=== PATIENT | female | born 1970 | race Caucasian/White ===

== ENCOUNTER → 2019-04-20 07:55 | Outpatient (BNVA) | payer OTHER, SELFPAY | PROVIDERS: Family Provider Nurse Practitioner Family; PCP Nurse Practitioner Family; Visit Provider Specialist | DX: M50.00 Cervical disc disorder with myelopathy, unspecified cervical region (principal); M79.7 Fibromyalgia; G43.711 Chronic migraine without aura, intractable, with status migrainosus; F41.8 Other specified anxiety disorders; M54.81 Occipital neuralgia; R76.8 Other specified abnormal immunological findings in serum | CPT/HCPCS: 64405; 64450; 99214; J1030; J3490 ==

== ENCOUNTER → 2019-12-21 16:53 | Outpatient (BNVA) | payer OTHER, SELFPAY | PROVIDERS: Family Provider Nurse Practitioner Family; PCP Nurse Practitioner Family; Visit Provider Nurse Practitioner Family | DX: Z11.59 Encounter for screening for other viral diseases (principal); Z20.828 Contact with and (suspected) exposure to other viral communicable diseases; J06.9 Acute upper respiratory infection, unspecified | CPT/HCPCS: 87635 ==

== ENCOUNTER → 2020-10-15 10:18 | Outpatient (BNVA) | payer BC, SELFPAY | PROVIDERS: Family Provider Nurse Practitioner Family; PCP Nurse Practitioner Family; Visit Provider Nurse Practitioner Family | DX: Z20.822 Contact with and (suspected) exposure to COVID-19 (principal) | CPT/HCPCS: 87635 ==

== ENCOUNTER → 2020-12-27 10:40 | Outpatient (BNVA) | payer BC, SELFPAY | PROVIDERS: Family Provider Nurse Practitioner Family; PCP Nurse Practitioner Family; Visit Provider Anesthesiology Pain Medicine | DX: G89.29 Other chronic pain (principal); M51.16 Intervertebral disc disorders with radiculopathy, lumbar region; M47.816 Spondylosis without myelopathy or radiculopathy, lumbar region; M43.12 Spondylolisthesis, cervical region | CPT/HCPCS: 99204 ==

== ENCOUNTER 2021-01-28 08:28 | Outpatient (CLI) | payer BC, SELFPAY ==
--- NOTE | 2021-01-28 08:45 | MR_ITS ---
WS: [id number] MRI CERVICAL SPINE NONCONTRAST TECHNIQUE: Sagittal T1, T2 and STIR imaging. Axial T2, gradient, and fiesta imaging. CLINICAL INFORMATION: M54.12 - Radiculopathy, cervical region COMPARISON: FINDINGS: Straightening of the normal cervical lordosis. Mild disc bulging C4-C6 with disc osteophytic ridging. Cord signal is normal. No high-grade central canal stenosis. Alignment is unchanged since 2019. C2-C3: Normal C3-C4: Disc osteophyte complex with endplate ridging. Mild bilateral foraminal narrowing. Mild facet arthropathy. Spinal canal is patent. C4-C5: Disc osteophyte complex with endplate ridging. Shallow central disc bulging. Mild right forami nal narrowing. Mild facet arthropathy. C5-C6: Disc osteophyte complex with endplate ridging. Mild facet arthropathy. Mild right greater than left foraminal narrowing. C6-C7: Disc osteophyte complex with endplate ridging. Spinal canal is patent. Mild facet arthropathy. Osteophytic ridging results in mild right greater than left bony foraminal narrowing. C7-T1: No significant disc bulging. Spinal canal and foramen are patent. Visualized brain stem structures: Normal. Prevertebral soft tissues: Normal. Overall no significant changes since 2019. MR/MR cervical spin wo con* [id number] IMPRESSION: 1. Straightening of the normal cervical lordosis. 2. Mild disc bulging with osteophytic ridging C4-C6. Slight contact of the cer vical cord at C4-5 unchanged from previous. No significant central canal stenos is. 3. Mild bilateral bony foraminal narrowing worse at right C3-4, right C5-6, an d right C6-7 unchanged from previous. 4. Mild facet arthropathy C4-C6.
== END 2021-01-28 08:29 | disposition home or self-care (01) ==
LOC: RADSHAW 08:32
PROVIDERS: PCP Nurse Practitioner Family; Visit Provider Anesthesiology Pain Medicine
DX: M54.12 Radiculopathy, cervical region (principal); M47.812 Spondylosis without myelopathy or radiculopathy, cervical region; M50.221 Other cervical disc displacement at C4-C5 level
CPT/HCPCS: 72141

== ENCOUNTER → 2021-01-30 09:13 | Outpatient (BNVA) | payer BC, SELFPAY | PROVIDERS: PCP Nurse Practitioner Family; Visit Provider Anesthesiology Pain Medicine | DX: G89.29 Other chronic pain (principal); M54.12 Radiculopathy, cervical region; M54.50 Low back pain, unspecified; M79.602 Pain in left arm; M79.605 Pain in left leg; M79.604 Pain in right leg | CPT/HCPCS: 99214 ==

== ENCOUNTER → 2022-04-01 10:00 | Outpatient (BNVA) | payer BC, MEDICAID, SELFPAY | PROVIDERS: PCP Nurse Practitioner Family; Visit Provider Nurse Practitioner Women's Health | DX: Z12.39 Encounter for other screening for malignant neoplasm of breast (principal); Z01.419 Encounter for gynecological examination (general) (routine) without abnormal findings; N63.31 Unspecified lump in axillary tail of the right breast; N92.1 Excessive and frequent menstruation with irregular cycle; J06.9 Acute upper respiratory infection, unspecified | CPT/HCPCS: 87624 ==

== ENCOUNTER → 2022-04-11 08:40 | Outpatient (BNVA) | payer BC, MEDICAID, SELFPAY | PROVIDERS: PCP Nurse Practitioner Family; Visit Provider Nurse Practitioner Women's Health | DX: N92.6 Irregular menstruation, unspecified (principal) | CPT/HCPCS: 76830 ==

== ENCOUNTER 2022-04-24 14:05 | Outpatient (CLI) | payer BC, MEDICAID, SELFPAY ==
--- NOTE | 2022-04-24 14:17 | MM_ITS ---
WS: [id number] BILATERAL 3D TOMOSYNTHESIS DIGITAL DIAGNOSTIC MAMMOGRAPHY WITH CAD CLINICAL INFORMATION: N63.31 - Unspecified lump in axillary tail of the right b... HISTORY: RIGHT breast lump COMPARISON: 2019 TECHNIQUE: Bilateral CC, MLO, and ML views. FINDINGS: Fatty replaced breasts bilaterally. A few incidental punctate calcifications. No parenchymal normalities in the area of palpable concern RIGHT breast near the axilla. Ultrasound is described below. LEFT breast is unchanged and unremarkable. ULTRASOUND BREAST RIGHT TECHNIQUE: Ultrasound right breast focused area of concern. CLINICAL INFORMATION: N63.31 - Unspecified lump in axillary tail of the right b... FINDINGS: Ultrasound RIGHT breast axillary tail in the area of patient concern. Normal underlying parenchymal t issue. No cystic or solid lesions. No lymphadenopathy or suspicious lymph nodes in this area. Finding s are benign. MM/[place] [id number] IMPRESSION: BI-RADS 2 BENIGN FOLLOW UP: Recommend return to annual screening mammography.
== END 2022-04-24 14:06 | disposition home or self-care (01) ==
PROVIDERS: PCP Nurse Practitioner Family; Visit Provider Nurse Practitioner Women's Health
DX: N63.31 Unspecified lump in axillary tail of the right breast (principal)
CPT/HCPCS: 76642; 77062; G0279

== ENCOUNTER 2022-06-10 14:40 | Observation (INO) | payer BC, MEDICAID, SELFPAY ==
[2022-06-05 09:44] VITALS: BMI 42.5
[2022-06-05 10:10] LABS: Basophils # 0.1 10^3/uL (0.0-0.1); Basophils % 0.8 %; Eosinophils # 0.4 10^3/uL (0.0-0.8); Eosinophils % 5.2 %; Hemoglobin 10.3 g/dL (11.5-15.3); Lymphocytes # 1.8 10^3/uL (0.8-4.8); Lymphocytes % 25.2 %; Mean Corpuscular HGB Conc 29.4 g/dL (30.0-36.0); Mean Corpuscular Hemoglobin 20.8 pg (28.0-34.0); Mean Corpuscular Volume 70.7 fl (81-99); Mean Platelet Volume 9.8 fL (7.4-10.4); Monocytes # 0.6 10^3/uL (0.2-0.9); Monocytes % 8.1 %; Neutrophils # 4.38 10^3/uL (1.8-7.7); Neutrophils % 60.4 %; Nucleated Red Blood Cells % 0 %; Platelet Count 353 10^3/cmm (130-400); Red Blood Count 4.95 10^6/uL (4.1-5.3); Red Cell Distribution Width 15.3 % (12.1-15.1); White Blood Count 7.3 10^3/uL (4.0-10.0)
--- NOTE | 2022-06-05 10:13 | P.ANESASSM_ITS ---
Pre-Anesthetic Assessment Height/Weight: Height 1.6 m Weight 108.862 kg Operation Date: 06/10/22 09:20 Proposed Procedures p Laparoscopic assisted vaginal hysterectomy, bilateral salpingo-oophorectomy 74023,N93.9, D25.9(Not Applicable) - Anay Paul MD Familial anesthetic complications: 1.) PONV 2.) Generalized erythema and desquamation after 3 prior surgeries ( I look like a boiled lobster and I molt ) - states lasts 7-10 days, did no visit geriatric care manager, but did not result in any further negative sequelae. Does have history of eczema. ? Sandro-Jaren/TENS. Informed if happens again post surgery to visit geriatric care manager Social No alcohol and No tobacco Exam alert, oriented x 3, clear to auscultation bilaterally and regular rate & rhythm Airway Mallampati: Class III Dentition: full Pulmonary Asthma CV/HEM Hypertension Metabolic Diabetes Mellitus (Pre-DM), Hyperlipidemia, Morbid Obesity and Thyroid Disease [facility] [place] Fibromyalgia Neuropsych Transient Ischemic Attack (Most recently in 2019) Anesthetic Plan ASA status: 3 Anesthesia: General Risk of > 500 ml blood loss (7ml/kg in children): No Medications/Allergies Home Medications Medication Instructions Recorded Confirmed Last Taken Type hydroxyzine HCl 50 mg tablet 50 mg PO ONCE 04/20/19 06/05/22 06/04/22 History diphenhydramine HCl 25 mg capsule 25 mg PO TID PRN Sleep 04/01/22 06/05/22 06/04/22 History (Benadryl) ibuprofen 800 mg tablet 800 mg PO Q8H 04/01/22 06/05/22 06/02/22 History levothyroxine 75 mcg capsule 75 mcg PO DAILY 04/01/22 06/05/22 06/05/22 History metoprolol succinate 50 mg capsule 50 mg PO DAILY 04/01/22 06/05/22 06/05/22 History sprinkle, ext. release 24 hr rimegepant 75 mg disintegrating mg PO 04/01/22 06/05/22 Unknown History tablet (Nurtec ODT) tizanidine 4 mg capsule 4 mg PO BID PRN Muscle Spasm 04/01/22 06/05/22 06/05/22 History clobetasol 0.05 % topical ointment 1 applic topical BID 2 weeks #60 04/08/22 06/05/22 06/04/22 Rx grams hydrocortisone 2.5 % topical cream 1 applic topical BID PRN skin 04/08/22 06/05/22 06/04/22 Rx irritation #20 grams ketoconazole 2 % topical cream 1 applic topical BID #30 grams 04/08/22 06/05/22 06/04/22 Rx mupirocin 2 % topical ointment 1 applic topical BID #15 grams 04/08/22 06/05/22 06/03/22 Rx pimecrolimus 1 % topical cream 1 applic topical BID #30 grams 04/08/22 06/05/22 06/04/22 Rx (Elidel) triamcinolone acetonide 0.1 % 1 applic topical BID #80 grams 04/08/22 06/05/22 06/04/22 Rx topical ointment alprazolam 0.5 mg tablet 0.5 mg PO DAILY 04/17/22 06/05/22 06/05/22 History quetiapine 25 mg tablet 25 mg PO BID 06/04/22 06/05/22 06/05/22 History amitriptyline 25 mg tablet 25 mg PO DAILY 06/05/22 06/05/22 06/04/22 History scopolamine base 1 mg over 3 days 1 patch transdermal Q3D PRN nausea 06/05/22 06/05/22 Unknown Rx transdermal patch and vomiting #4 ea venlafaxine 150 mg tablet,extended 150 mg PO DAILY 06/05/22 06/05/22 Unknown History release 24 hr Allergies Allergy/AdvReac Type Severity Reaction Status Date / Time shellfish derived Allergy Intermediate hives Verified 06/05/22 08:01 Cephalosporins Allergy Unknown Verified 06/05/22 08:01 egg Allergy Unknown Verified 06/05/22 08:01 erythromycin base Allergy GI upset Verified 06/05/22 08:01 Penicillins AdvReac hives Verified 06/05/22 08:01 [facility] Anesthesia Medical History Diabetes Encounter for screening laboratory testing for COVID-19 virus Hx-TIA (transient ischemic attack) Hypertension Viral URI with cough Family History Grandmother Heart disease Hypertension Grandfather Heart disease Hypertension Mother Hypertension Other Diabetes Stroke Denies family history of Colon cancer Ovarian cancer Hypercholesteremia Breast cancer Uterine cancer Thyroid disease Social History Alcohol intake: never Data Anesthesia 06/05/22 09:58 06/05/22 09:58 Short CBC 06/05/22 Range/Units 09:58 WBC 7.3 (4.0-10.0) 10^3/uL Hgb 10.3 L (11.5-15.3) g/dL Hct 35.0 L (37.0-47.0) % MCV 70.7 L (81-99) fl Plt Count 353 (130-400) 10^3/cmm Neut % (Auto) 60.4 % Neut # (Auto) 4.38 (1.8-7.7) 10^3/uL Cardiac Studies: No Data to Display
[2022-06-05 10:27] LABS: Blood Urea Nitrogen 12 mg/dL (6-20); Calcium 8.4 mg/dL (8.5-10.5); Carbon Dioxide 26 mmol/L (22-29); Chloride 103 mmol/L (98-107); Glomerular Filtration Rate 105.8 mL/min (90-130); Glucose 129 mg/dL (65-115); Osmolality Calculated 285 mOsm/kg (285-295); Sodium 137 mmol/L (136-145)
[2022-06-10] VITALS (22 sets, daily range): BP systolic 97–145; BP diastolic 50–83; PULSE 74–96; RESP 15–19; TEMP 36.1–37.4; O2SAT 93–98
[2022-06-10 07:53] LABS: OR HCG Qualitative Urine Negative (Negative)
[2022-06-10] MEDS: gabapentin 300 mg Capsule PO (08:19)
[2022-06-10] MEDS: phenazopyridine 100 mg Tablet 200 MG PO ×3 (08:19→21:17)
[2022-06-10] MEDS: sodium chloride 0.9% 1,000 ML 30 ML IV (08:19)
[2022-06-10] MEDS: CELEcoxib 200 mg Capsule 400 MG PO (08:19)
[2022-06-10] MEDS: acetaminophen 1,000 MG/100 ML PIGGYBACK 400 MG IV (08:20)
--- NOTE | 2022-06-10 08:21 | W.PM.OPSUD ---
Surgery/Procedure H&P Update DATE OF PROCEDURE: June 10, 2022 DATE H&P PERFORMED: 06/05/22 H&P UPDATE INFORMATION: I have reviewed H&P completed within last 30 days, I have examined patient prior to procedure and No changes to prior documentation PREOP DIAGNOSIS: aub PLANNED PROCEDURE: Operation Date: 06/10/22 08:45 Proposed Procedures p Laparoscopic assisted vaginal hysterectomy, bilateral salpingo-oophorectomy 57450,N93.9, D25.9(Not Applicable) - Anay Paul MD Related Problem List Diagnoses (1) Uterine fibroid: (2) Irregular intermenstrual bleeding:
[2022-06-10 08:26] LABS: Glucose Point of Care 117 mg/dL (70-110)
[2022-06-10] MEDS: ondansetron 2 mg/ML SDV 2 mL 4 MG IVP ×3 (08:27→14:48)
[2022-06-10] MEDS: diphenhydrAMINE 50 mg/mL SDV 1mL 25 MG IVP (08:27)
[2022-06-10] MEDS: vancomycin 1,500 MG/300 ML PIGGYBACK 200 MG IV (08:34)
[2022-06-10] MEDS: vasopressin 20 unit/mL INJ INJECTION (09:55)
--- NOTE | 2022-06-10 10:07 | P.ANESUD_ITS ---
Pre-Anesthetic Update Pre-Anesthetic Assessment: Date of Surgery/Procedure: 06/10/22 Preop Kourtney gnosis: aub Proposed Procedure: Operation Date: 06/10/22 08:45 Proposed Procedures p Laparoscopic assisted vaginal hysterectomy, bilateral salpingo-oophorectomy 46901,N93.9, D25.9(Not Applicable) - Anay Paul MD Any changes to Pre-Anesthetic Assessment?: No Last Intake: Intake Last Liquid Date 06/09/22 Last Liquid Time 23:45 Last Solid Date 06/09/22 Last Solid Time 23:30 Labs Last 48hrs: Blood Bank 06/10/22 08:14 Blood Type O Positive Rho(D) Type Positive Antibody Screen Negative Vitals: Temperature 99.3 F 06/10/22 07:45 Temperature Source Temporal Artery S can 06/10/22 07:45 Pulse Rate 74 06/10/22 07:45 Pulse Rhythm 06/10/22 07:55 Pulse Strength 3+ Normal 06/10/22 07:55 Respiratory Rate 16 06/10/22 07:45 Blood Pressure 138/80 06/10/22 07:45 Blood Pressure Maggie n 99 06/10/22 07:45 Pulse Oximetry 97 06/10/22 07:45 Oxygen Delivery Me thod 06/10/22 07:55 Exam: Pre-Anes Outpt Exam: alert, oriented x 3, clear to auscultation bilaterally and regular rate & rhythm Cardiac Studies: No Data to Display
--- NOTE | 2022-06-10 13:37 | P.OP_ITS ---
Operative Report Date of procedure: June 10, 2022 Pre-op diagnosis: Preop Diagnosis aub Post-op diagnosis: same Post-op diagnosis: uterine fibroids Post-op findings: enlarged uterus with fibroids, dense adhesions in the pelvis. Left ovarian cyst. Normal appearing right ovary. Procedure done: LAVH, BSO, cystoscopy Specimens removed/disposition: UTERUS, tubes and ovaries to pathology Surgeon: Anay Paul Anesthesia: General Estimated blood loss (mL): 500 IV fluids (mL): 2,400 Urine output (mL): 250 Complications: none Findings: very enlarged uterus, normal appearing tubes and ovaries Condition: stable Disposition: PACU Procedure: The patient was taken to the operating room where general anesthesia was administered and found to be adequate. She was prepped and draped in the normal sterile fashion in the dorsal lithotomy position in [facility]. A Nassar catheter was placed. A weighted speculum was placed into the vagina and the anterior lip of the cervix was grasped with a single tooth tenaculum. The Zumi uterine manipulator was placed. The weighted speculum was removed. The gloves were changed and attention was turned to the abdomen. A 5 mm supraumbilical incision was made. Using a 5 mm port with the camera, the port was placed into the abdomen. The abdomen was insufflated. Two low, lateral 5 mm ports were placed on the left and right under direct visualization from the camera. The right tube was grasped and elevated. Using the laparoscopic cautery, the infundibulopelvic ligament was cauterized. Then, following the curve of the tube, the broad ligament was cauterized up to the cornua. This was performed bilaterally. The uteroovarian ligaments as well as the round ligaments were ligated. Attention was then turned to the vaginal portion of the procedure. The weighted speculum was placed into the vagina. The zumi manipulator was removed. The single tooth tenaculum was removed and replaced with the jodie's tenaculum. 10 mL of dilute Pitressin was injected at the vesicovaginal junction. A circumferential incision was made at the vesicovaginal junction and the vaginal mucosa reflected cephalad. The posterior peritoneum was entered sharply with the Metzenbaum scissors and the long weighted speculum replaced. Using the Nicole clamps the uterosacral ligaments were clamped cut and suture- ligated. The anterior peritoneum was entered sharply with the metzenbaum scissors. Then sequentially the uterine arteries and cardinal ligaments were clamped cut and suture-ligated. The uterus was so large that I had a difficult time removing it. I cut portions out and attempted to shell out some fibroids. I grasped an anterior fibroid and eventually delivered the uterus. The remaining segement of the utero-ovarian ligaments were clamped cut and suture- ligated bilaterally and the specimen was removed. There was good hemostasis with only mild bleeding from the cuff. There was some fat in the posterior of the cuff. I had Dr. Rogers come and take a look to make sure that this was not a complication. He determined that it was normal and only mariana rectal fat. The peritoneum was closed with a pursestring using 2-0 Vicryl. The vaginal c uff was closed with 0 Vicryl in a running locked pattern incorporating the uterosacral ligaments into the lateral aspects of the vaginal cuff. The Nassar catheter was removed and the cystoscope advanced into the bladder. The patient was given pyridium and bilateral spill was noted. There were no injuries or deficits noted in the bladder. The cystoscope was removed and the Nassar was replaced. Vaginal packing was placed for good hemostasis. The gloves and gowns were changed and attention was turned to the abdomen. The ports were closed with 2-0 monocryl with skin glue. The patient tolerated the procedure well. Sponge lap and needle counts were correct x3. She was taken to the recovery room in stable condition.
[2022-06-10 14:01] LABS: Glucose Point of Care 151 mg/dL (70-110)
[2022-06-10] MEDS: metoclopramide 5 mg/mL SDV 2 mL 10 MG (14:58)
[2022-06-10] MEDS: dextrose 5%-lactated ringers 1,000 ML 125 ML IV ×2 (15:36→23:30)
[2022-06-10] MEDS: clindamycin 900 MG/50 ML PREMIX 100 MG IV (15:36)
--- NOTE | 2022-06-10 16:23 | ANE.PACU2 ---
Inpatient post-anesthesia follow up: Airway intact: Yes Vital signs: Temperature 98.2 F Pulse Rate 78 Respiratory Rate 17 Blood Pressure 142/74 Pulse Oximetry 97 Oxygen Delivery Me thod Room Air Oxygen Flow Rate 3 Fraction of Inspir ed Oxygen Hydration adequate: Yes Nausea and vomiting: No Pain level: 3 Mental status: Baseline
[2022-06-10] MEDS: docusate sodium 100 mg Capsule PO (17:48)
[2022-06-10] MEDS: quetiapine 25 mg Tablet PO (17:48)
[2022-06-10] MEDS: ketorolac 30 mg/mL INJ IVP (19:34)
--- NOTE | 2022-06-10 21:12 | PC.NURSE ---
This nurse attempted to ambulate this pt. The pt reported feeling extremely dizzy and tunnel vision. This nurse put pt back in bed and stated we could try again in 30 minutes.
[2022-06-10] MEDS: HYDROcodone-acetaminophen 5-325 mg Tablet PO (22:23)
[2022-06-11] MEDS: clindamycin 900 MG/50 ML PREMIX 100 MG IV (00:02)
[2022-06-11 00:05] VITALS: BP 136/91; PULSE 54
[2022-06-11] MEDS: ketorolac 30 mg/mL INJ IVP (01:06)
[2022-06-11] MEDS: simethicone 80 mg Chew PO (04:57)
[2022-06-11] MEDS: acetaminophen 325 mg Tablet 650 MG PO (04:57)
[2022-06-11 04:59] VITALS: BP 125/74; PULSE 90; RESP 15; TEMP 37.2
--- NOTE | 2022-06-11 05:00 | PC.NURSE ---
Vag packing removed at 0450. Pt tolerated well. Minimal bleeding noted on packing.
[2022-06-11 05:06] LABS: Hematocrit 27.2 % (37.0-47.0); Hemoglobin 7.9 g/dL (11.5-15.3); Mean Corpuscular Volume 72.1 fl (81-99); Mean Platelet Volume 10.1 fL (7.4-10.4); Platelet Count 292 10^3/cmm (130-400); Red Blood Count 3.77 10^6/uL (4.1-5.3); Red Cell Distribution Width 15.6 % (12.1-15.1); White Blood Count 12.1 10^3/uL (4.0-10.0)
--- NOTE | 2022-06-11 06:57 | PM.DCS ---
Discharge Providers Date of Admission: 06/10/22 14:40 Date of Discharge: June 11, 2022 Attending Provider at Admission: Anay Paul MD Attending Provider at Discharge: Anay Paul MD Primary Care Provider: Ashlee Howard Diagnoses at Discharge Discharge Diagnosis (1) Uterine fibroid: Status: Acute (2) Irregular intermenstrual bleeding: Status: Acute Hospital Course Hospital Course The patient was admitted for surgery. She did well postoperatively and was ready for discharge on day #1 Physical Exam Narrative: The patient is doing well this morning. She is ambulating, tolerating a normal diet and pain is well controlled. Const: COMMON NORMALS: no acute distress, patient oriented x3, no limitations, healthy appearing, alert and well nourished GENERAL APPEARANCE: cooperative, comfortable, well kempt and well developed ORIENTATION/CONSCIOUSNESS: Yes awake, Yes oriented to person, Yes oriented to place and Yes oriented to time Resp: COMMON NORMALS: normal respiratory effort EFFORT & INSPECTION: Yes able to speak in complete sentences GI: COMMON NORMALS: Soft to palpation and non-tender PALPATION: Yes Soft to palpation Extremity: COMMON NORMALS: no calf tenderness Neuro: COMMON NORMALS: patient oriented x3 SENSORIUM/ORIENTATION: Yes alert, Yes oriented to person, Yes oriented to place and Yes oriented to time Psych: COMMON NORMALS: mental status grossly normal, Normal thought process present, cooperative, normal affect and speech normal APPEARANCE: Yes well kempt SPEECH: Yes normal speech THOUGHT PROCESS: Normal thought process present Urinary Catheter Management: Nassar: Cath Placed During This Visit: yes, but has since been removed by the nurse Reason for Continuing Indwelling Catheter: Decision to DC Catheter Urinary Catheter Date of Insertion: 06/10/22 Urinary Catheter Time of Insertion: 09:12 Date Urinary Catheter Removed: 06/11/22 Time Urinary Catheter Discontinued: 04:50 Discharge Data Studies Completed and Pending Pending at discharge Category Date Time Status ES surgery / GI images Routine Exams 06/10/22 08:23 Taken Urine Culture Routine Lab 06/10/22 09:37 Received Pathology: Surgical [PTH] Routine Pth 06/10/22 12:33 Received Laboratory Results WBC 12.1 10^3/uL (4.0-10.0) H 06/11/22 04:50 RBC 3.77 10^6/uL (4.1-5.3) L 06/11/22 04:50 Hgb 7.9 g/dL (11.5-15.3) L 06/11/22 04:50 Hct 27.2 % (37.0-47.0) L 06/11/22 04:50 MCV 72.1 fl (81-99) L 06/11/22 04:50 MCH 21.0 pg (28.0-34.0) L 06/11/22 04:50 MCHC 29.0 g/dL (30.0-36.0) L 06/11/22 04:50 RDW 15.6 % (12.1-15.1) H 06/11/22 04:50 Plt Count 292 10^3/cmm (130-400) 06/11/22 04:50 MPV 10.1 fL (7.4-10.4) 06/11/22 04:50 Neut % (Auto) 60.4 % 06/05/22 09:58 Lymph % (Auto) 25.2 % 06/05/22 09:58 [place] % (Auto) 8.1 % 06/05/22 09:58 Eos % (Auto) 5.2 % 06/05/22 09:58 Baso % (Auto) 0.8 % 06/05/22 09:58 Neut # (Auto) 4.38 10^3/uL (1.8-7.7) 06/05/22 09:58 Lymph # (Auto) 1.8 10^3/uL (0.8-4.8) 06/05/22 09:58 [place] # (Auto) 0.6 10^3/uL (0.2-0.9) 06/05/22 09:58 Eos # (Auto) 0.4 10^3/uL (0.0-0.8) 06/05/22 09:58 Baso # (Auto) 0.1 10^3/uL (0.0-0.1) 06/05/22 09:58 Nucleated RBC % (auto) 0 % 06/05/22 09:58 Nucleated RBCs # 0.0 /100WBC 06/05/22 09:58 Sodium 137 mmol/L (136-145) 06/05/22 09:58 Potassium 4.0 mmol/L (3.5-5.1) 06/05/22 09:58 Chloride 103 mmol/L (98-107) 06/05/22 09:58 Carbon Dioxide 26 mmol/L (22-29) 06/05/22 09:58 Anion Gap 12.0 (5-19) 06/05/22 09:58 BUN 12 mg/dL (6-20) 06/05/22 09:58 Creatinine 0.6 mg/dL (0.5-0.9) 06/05/22 09:58 GFR Calculation 105.8 mL/min (90-130) 06/05/22 09:58 Glucose 129 mg/dL (65-115) H 06/05/22 09:58 POC Glucose 151 mg/dL (70-110) H 06/10/22 13:57 Calculated Osmolality 285 mOsm/kg (285-295) 06/05/22 09:58 Calcium 8.4 mg/dL (8.5-10.5) L 06/05/22 09:58 Urine HCG, Qual Negative (Negative) 06/10/22 07:52 Blood Type O Positive 06/10/22 08:14 Rho(D) Type Positive 06/10/22 08:14 Antibody Screen Negative 06/10/22 08:14 Vitals Last Vital Signs Temp 99.0 F 06/11/22 04:59 Pulse 90 06/11/22 04:59 Resp 15 06/11/22 04:59 BP 125/74 06/11/22 04:59 Pulse Ox 97 06/10/22 20:42 O2 Del Method 06/10/22 20:42 O2 Flow Rate 3 06/10/22 14:46 Discharge Plan Discharge Patient Disposition: Home Condition: Stable Prescriptions: New ibuprofen 800 mg Tablet 800 mg PO Q8H Qty: 30 0RF docusate sodium 100 mg Capsule 100 mg PO BID Qty: 60 0RF tramadol 50 mg tablet 50 mg PO Q6H Qty: 30 0RF Continued hydroxyzine HCl 50 mg tablet 50 mg PO ONCE metoprolol succinate 50 mg capsule,sprinkle,ER 24hr 50 mg PO DAILY tizanidine 4 mg capsule 4 mg PO BID PRN (Reason: Muscle Spasm) ibuprofen 800 mg tablet 800 mg PO Q8H levothyroxine 75 mcg capsule 75 mcg PO DAILY diphenhydramine HCl [Benadryl] 25 mg capsule 25 mg PO TID PRN (Reason: Sleep) Nurtec ODT 75 mg tablet,disintegrating 75 mg PO DIRECTED PRN (Reason: Headache) pimecrolimus [Elidel] 1 % cream 1 applic topical BID Qty: 30 0RF Rx Instructions: Apply to face twice daily for maintenance of eczema clobetasol 0.05 % ointment 1 applic topical BID 14 Days Qty: 60 1RF Rx Instructions: Apply thin layer to arms, legs and abdomen as needed for flares hydrocortisone 2.5 % cream 1 applic topical BID PRN (Reason: skin irritation) Qty: 20 0RF Rx Instructions: Apply thin layer to face as needed for flares ketoconazole 2 % cream 1 applic topical BID Qty: 30 3RF Rx Instructions: Apply to affected areas in skin folds x3 weeks then prn for flares mupirocin 2 % ointment 1 applic topical BID Qty: 15 0RF Rx Instructions: Apply thin layer to chest until healed triamcinolone acetonide 0.1 % ointment 1 applic topical BID Qty: 80 0RF Rx Instructions: Apply to affected area no more than 2 weeks/month. Not for use on face or folds quetiapine 25 mg tablet 25 mg PO BID alprazolam 0.5 mg tablet 0.5 mg PO DAILY amitriptyline 25 mg tablet 25 mg PO DAILY venlafaxine 150 mg tablet extended release 24hr 150 mg PO DAILY scopolamine base 1 mg over 3 days patch 3 day 1 patch transdermal Q3D PRN (Reason: nausea and vomiting) Qty: 4 0RF Rx Instructions: place patch Thursday morning Discharge Orders: Discharge Order (Routine); Ordered 06/11/22 Ordered By: Anay Paul Patient Instructions: Opioid Safety Discharge Attestations Time Spent in Discharge Care*: less than 30 min Quality Metrics Clinical Quality Measures [ No reported AMI, CVA or VTE this stay] Coding Level of Care Code Acute Code for Chg Fwd Diagnoses Uterine fibroid D25.9 Irregular intermenstrual bleeding N92.1
[2022-06-11] MEDS: docusate sodium 100 mg Capsule PO (08:24)
[2022-06-11] MEDS: phenazopyridine 100 mg Tablet 200 MG PO (08:24)
[2022-06-11] MEDS: TRAMadol 50 mg Tablet PO (08:25)
--- NOTE | 2022-06-11 09:15 | PC.NURSE ---
PATIENTS SISTER IS HERE WITH HER AND HELP HER TO BATHROOM EARLIER AND SHE WAS NOT ABLE TO VOID YET. TOLD THEM BOTH TO LET ME HELP HER THE NEXT FEW TIMES TO GET UP SO I KNOW THAT SHE IS DOING WELL AND THEY VOICED UNDERSTANDING THIS SOLDERING MACHINE FEEDER WENT OVER HOME CARE INSTRUCTIONS WITH THEM BOTH AROUND 0730 WHEN I DID HER ASSESSMENT AND THEN WHEN I WENT BACK IN AT 0800 PATIENT WAS BACK IN BED. ASKED THEM AGAIN TO PLEASE CALL ME WHEN SHE NEEDED TO GET UP SO THAT I CAN MAKE SURE SHE IS GOING.
[2022-06-11 10:10] VITALS: BP 149/78; PULSE 83; RESP 20; TEMP 36.9
--- NOTE | 2022-06-11 10:27 | PC.NURSE ---
PT DID GET ALL THE CORRECT DISCHARGE PAPERWORK THIS SENIOR PRODUCT MANAGER FORGOT TO ADD HYST PAPERS SO I ADDED IT AND TOOK THE OTHERS OFF. BUT AGAIN SHE DID GET PROPER PAPERWORK.
--- NOTE | 2022-06-11 10:30 | PC.NURSE ---
STEWART WENT TO HELP PATIENT GET UP TO BATHROOM ADN I TOLD HER TO MEASURE HOW MUCH SHE WENT AND STEWART CAME BACK OUT AND SAID THAT THE PATIENT WAS TOLD BY DR. FERNANDEZ THAT SHE DID NOT HAVE TO USE THE HAT THAT WE DID NOT NEED TO MEASURE HER URINE. SO I TOLD STEWART THAT WAS FINE JUST MAKE SURE SHE GOES. PT DID VOID WELL AND WALKED A COUPLE LAPS, DENIES DIZZINESS AND IS REQUESTING DISCHARGE [PAPERS. PATIENT IS DOING GREAT.
--- NOTE | 2022-06-11 10:35 | PC.NURSE ---
PT STATES PAIN STILL A 5 BUT IS IMPROVING
[2022-06-11 10:37] VITALS: BP 149/78; PULSE 83; RESP 20; TEMP 36.9
== END 2022-06-11 10:25 | disposition home or self-care (01) ==
LOC: OBGYN 23:17
PROVIDERS: Anesthesiology; Admitting Provider Obstetrics & Gynecology; PCP Nurse Practitioner Family; Visit Provider Obstetrics & Gynecology
PROC: 0UT9FZZ Resection of Uterus, Via Natural or Artificial Opening With Percutaneous Endoscopic Assistance (ICD-10-PCS; principal; 2022-06-10 08:35)
DX: N92.1 Excessive and frequent menstruation with irregular cycle (principal); D25.9 Leiomyoma of uterus, unspecified; I10 Essential (primary) hypertension; E11.9 Type 2 diabetes mellitus without complications; E78.5 Hyperlipidemia, unspecified; E66.01 Morbid (severe) obesity due to excess calories; Z68.41 Body mass index [BMI] 40.0-44.9, adult; M79.7 Fibromyalgia; G45.9 Transient cerebral ischemic attack, unspecified
CPT/HCPCS: 58554; 36415; 36416; 80048; 81025; 82962; 84703; 85025; 85027; 86850; 86900; 87086; 88307; 96374; 96376; G0378; J0131; J1100; J1170; J1200; J1885; J2370; J2405; J2710; J2765; J3010; J3370; J3490; J7030; J7121

== ENCOUNTER → 2022-07-14 14:53 | Outpatient (BNVA) | payer BC, MEDICAID, SELFPAY | PROVIDERS: PCP Nurse Practitioner Family; Referring Provider Nurse Practitioner Family; Visit Provider Specialist | DX: G43.711 Chronic migraine without aura, intractable, with status migrainosus (principal) | CPT/HCPCS: 82607; 83921 ==

== ENCOUNTER 2022-07-30 16:44 | Emergency (ER) | payer BC, MEDICAID, SELFPAY ==
[2022-07-30 17:19] VITALS: BP 199/140; PULSE 107; RESP 22; TEMP 36.8; O2SAT 97; BMI 41.6
--- NOTE | 2022-07-30 17:19 | XRR_ITS ---
PROCEDURE INFORMATION: Exam: XR Chest Exam date and time: 07/30/2022 5:28 PM Age: 51 years old Clinical indication: Pain; Chest pressure; Additional info: Chest pain TECHNIQUE: Imaging protocol: Radiologic exam of the chest. Views: 1 view. COMPARISON: CR XR sternum min 2V [id number] 04/01/2018 1:25 PM FINDINGS: Lungs: The lungs are clear. The left hemidiaphragm is slightly elevated. Pleural spaces: Unremarkable. No pleural effusion. No pneumothorax. Heart/Mediastinum: Unremarkable. No cardiomegaly. Bones/joints: Unremarkable. XR/XR chest 1V portable [id number] IMPRESSION: No acute cardiopulmonary abnormality.
--- NOTE | 2022-07-30 17:27 | CTR_ITS ---
PROCEDURE INFORMATION: Exam: CT Head Without Contrast Exam date and time: 07/30/2022 5:42 PM Age: 51 years old Clinical indication: Other: Extremity numbness; Additional info: Ext numbness TECHNIQUE: Imaging protocol: Computed tomography of the head without contrast. Axial, coronal and sagittal reformatted images were created and reviewed. Radiation optimization: All CT scans at this facility use at least one of these dose optimization techniques: automated exposure control; mA and/or kV adjustment per patient size (includes targeted exams where dose is matched to clinical indication); or iterative reconstruction. REPORTING DATA: Count of CT and Cardiac NM exams in prior 12 months: This patient has received 0 known CTs and 0 known cardiac nuclear medicine studies in the 12 months prior to the current study. COMPARISON: CT head wo con* [id number] 04/01/2018 2:10 PM RADIATION DOSE METRICS: Total DLP (mGy-cm): 1077.78 FINDINGS: Brain: Subtle, patchy areas of hypoattenuation in the periventricular and subcortical white matter, nonspecific but suggestive of mild chronic small vessel ischemic disease. No CT evidence of acute intracranial hemorrhage or acute territorial infarction. No significant mass effect or midline shift. Basal cisterns patent. Cerebral ventricles: Normal in size and configuration. Paranasal sinuses: Minimal ethmoid and left maxillary sinus mucosal thickening. No fluid levels. Mastoid air cells: Grossly unremarkable. Bones/joints: No acute osseous abnormality. Soft tissues: Grossly unremarkable. CT/CT head wo con* [id number]: 1[address] No [address] evidence of acute intracranial pathology. 2. Additional findings, as above.
--- NOTE | 2022-07-30 17:30 | ED_ITS ---
HPI - Chest Pain General: Chief Complaint: Chest Pain Stated Complaint: chest pressure Time Seen by Provider: 07/30/22 17:19 History of Present Illness: 51-year-old female comes in today with feeling of malaise since this morning. Patient states that she just do not feel right. Patient has some chest discomfort but not pain. Patient appears nontoxic. Patient appears in mild dis comfort. Patient appears anxious. Patient reports no other signs or symptoms of illness. Patient has a history of anxiety, diabetes, angina, and migraine headaches. Patient had a recent hysterectomy about 3 to 4 weeks ago. Associated symptoms: Deny dyspnea, fever(s), nausea or vomiting Review of Systems General: Reports: 10 or more systems reviewed and unremarkable except in HPI and below Const: Reports: malaise; Denies: fever(s) Eyes: Denies: change in vision ENMT: Denies: throat pain Card: Reports: chest pain Resp: Denies: dyspnea GI: Denies: nausea, vomiting, diarrhea or constipation : Denies: difficulty voiding Musc: Denies: neck pain or back pain Skin/Breast: Denies: rash Neuro: Reports: numbness in extremities (Left arm); Denies: headache(s) Psych: Reports: anxiety PFSH ED PFSH: Medical History Cervicalgia of wkzcznpz-fllxyhz-nnbyd region Chronic migraine without aura, intractable, with status migrainosus Diabetes Encounter for screening laboratory testing for COVID-19 virus Hx-TIA (transient ischemic attack) Hypertension Irregular intermenstrual bleeding Uterine fibroid Viral URI with cough Surgical History H/O hemorrhoidectomy History of gastric bypass No pertinent past surgical history Status post hysteroscopic ablation of endometrium Family History Grandmother Heart disease Hypertension Grandfather Heart disease Hypertension Mother Hypertension Other Diabetes Stroke Denies family history of Colon cancer Ovarian cancer Hypercholesteremia Breast cancer Uterine cancer Thyroid disease Social History Alcohol intake: never Substance/Drug Use: never Physical Exam Const: COMMON NORMALS: alert HENMT: HEAD & SCALP: other (Left central forehead vesicular lesions tender) NOSE: Normal nares present MOUTH: Normal oral and palatal mucosa present Neck/C-Spine: COMMON NORMALS: full ROM Resp: COMMON NORMALS: normal respiratory effort and clear to auscultation bilaterally AUSCULTATION: clear to auscultation bilaterally Cardio: COMMON NORMALS: regular rate and regular rhythm RATE: regular rate RHYTHM: regular rhythm GI: COMMON NORMALS: Soft to palpation PALPATION: Yes Soft to palpation : COMMON NORMALS: Yes no CVA tenderness BLADDER/KIDNEY EXAM: Yes no CVA tenderness Back/Pelvis: COMMON NORMALS: no CVA tenderness and thoracic and lumbar spine normal to inspection Extremity: COMMON NORMALS: no pedal edema Neuro: SENSORIUM/ORIENTATION: Yes alert Skin: COMMON NORMALS: turgor normal GENERAL SKIN EXAM: turgor normal Course Vital Signs: Vital signs: Vital Signs Temperature 98.3 F 07/30/22 17:19 Pulse Rate 90 07/30/22 19:27 Respiratory Rate 22 H 07/30/22 17:19 Blood Pressure 167/86 07/30/22 19:27 Pulse Oximetry 97 07/30/22 19:27 Oxygen Delivery Me thod Room Air 07/30/22 19:27 MDM - Chest Pain Medical Decision Making Patient comes in with general complaints. Patient has chest discomfort. On exam we note a vesicular rash to the left forehead that is tender to touch. Pupils are equal and reactive. No focal neural deficits are noted. Good hand strength in both extremities. No edema is noted in the extremities. Lungs are clear to auscultation. Abdomen soft nontender. Skin is warm and dry. Differential diagnosis includes but not limited to shingles, CHF, ACS, anxiety, surgical infection. CT of the head was unremarkable, CT of the abdomen and p carlos a noted no signs of infection or other acute process. Chest x-ray was normal. CBC and CMP were unremarkable. Troponin at baseline and 2-hour are unchanged, and not elevated. Patient does have some mild anemia on her blood count but which has improved since last 1 done 3 months ago. Patient was given 10 mg of labetalol IV for elevated blood pressure. Patient had resolution of symptoms and felt much improved prior to discharge. Believe the patient might have some uncontrolled hypertension along with a flare of shingles. Patient will be treated for her shingles valacyclovir. Patient was recommended to follow-up with primary care for reassessment and recheck on blood pressure. Patient stated understanding of care plan and need for follow-up or return to the ER. Lab Data 07/30/22 17:30 07/30/22 17:30 Radiology Impressions Chest X-Ray 07/30/22 17:19 IMPRESSION: No acute cardiopulmonary abnormality. Head CT 07/30/22 17:27 IMPRESSION: 1. No CT evidence of acute intracranial pathology. 2. Additional findings, as above. Abdomen/Pelvis CT 07/30/22 17:43 IMPRESSION: No acute abnormality is seen in the abdomen or pelvis. Possible constipation. Laboratory Results WBC 10.8 10^3/uL (4.0-10.0) H 07/30/22: RBC 5.00 10^6/uL (4.1-5.3) 07/30/22: Hgb 9.8 g/dL (11.5-15.3) L 07/30/22: Hct 33.9 % (37.0-47.0) L 07/30/22: MCV 67.8 fl (81-99) L 07/30/22: MCH 19.6 pg (28.0-34.0) L 07/30/22: MCHC 28.9 g/dL (30.0-36.0) L 07/30/22: RDW 15.3 % (12.1-15.1) H 07/30/22 17:30 Plt Count 476 10^3/cmm (130-400) H 07/30/22: MPV 9.6 fL (7.4-10.4) 07/30/22 17: Neut % (Auto) 64.9 % 07/30/22: Lymph % (Auto) 23.0 % 07/30/22: [place] % (Auto) 7.9 % 07/30/22: Eos % (Auto) 3.4 % 07/30/22 17: Baso % (Auto) 0.5 % 07/30/22:30 Neut # (Auto) 6.99 10^3/uL (1.8-7.7) 07/30/22: Lymph # (Auto) 2.5 10^3/uL (0.8-4.8) 07/30/22 17:30 [place] # (Auto) 0.9 10^3/uL (0.2-0.9) 07/30/22 17:30 Eos # (Auto) 0.4 10^3/uL (0.0-0.8) 07/30/22 17:30 Baso # (Auto) 0.1 10^3/uL (0.0-0.1) 07/30/22 17: Nucleated RBC % (auto) 0 % 07/30/22 17: Nucleated RBCs # 0.0 /100WBC 07/30/22 17:30 Sodium 138 mmol/L (136-145) 07/30/22: Potassium 3.5 mmol/L (3.5-5.1) 07/30/22: Chloride 101 mmol/L (98-107) 07/30/22: Carbon Dioxide 25 mmol/L (22-29) 07/30/22: Anion Gap 15.5 (5-19) 07/30/22: BUN 8 mg/dL (6-20) 07/30/22: Creatinine 0.6 mg/dL (0.5-0.9) 07/30/22: GFR Calculation 105.8 mL/min (90-130) 07/30/22: Glucose 96 mg/dL (65-115) 07/30/22: Calculated Osmolality 284 mOsm/kg (285-295) L 07/30/22: Calcium 8.6 mg/dL (8.5-10.5) 07/30/22: Total Bilirubin 0.2 mg/dL (0.15-1.2) 07/30/22 17: AST 16 U/L (0-32) 07/30/22: ALT 16 U/L (0-33) 07/30/22 17: Alkaline Phosphatase 127 U/L (35-105) H 07/30/22 17:30 Troponin T Baseline 6 ng/L (0-10) 07/30/22 17:30 Troponin T 120 Minute 6 ng/L (0-10) 07/30/22 19:17 Delta Troponin T 0 ABS# (0-10) 07/30/22 19:17 NT-Pro-B Natriuret Pep 36 pg/mL (0-125) 07/30/22 17:30 Total Protein 7.6 g/dL (6.6-8.7) 07/30/22 17: Albumin 4.4 g/dL (3.5-5.2) 07/30/22 17: Globulin 3.2 g/dL (1.3-4.6) 07/30/22 17: Lipase 21 U/L (13-60) 07/30/22 17:30 Urine Color Straw (Yellow) 07/30/22 20:40 Urine Appearance Clear (CLEAR) 07/30/22 20:40 Urine pH 6.5 (5-7) 07/30/22 20:40 Ur Specific [place] 1.010 (1.005-1.030) 07/30/22 20:40 Urine Protein Neg (Negative) 07/30/22 20:40 Urine Glucose (UA) Norm (Normal) 07/30/22 20:40 Urine Ketones Negative (Negative) 07/30/22 20:40 Urine Blood Neg (Negative) 07/30/22 20:40 Urine Nitrate Negative (Negative) 07/30/22 20:40 Urine Bilirubin Neg (Negative) 07/30/22 20:40 Urine Urobilinogen Norm mg/dL (Negative) 07/30/22 20:40 Ur Leukocyte Esterase Negative (Negative) 07/30/22 20:40 EKG Data EKG 1: EKG interpretation date: 07/30/22 EKG interpretation time: 17:26 Interpretation: EKG shows sinus tachycardia with regular rate at [address] elevation is noted. No ectopy is noted. Computer reads possible left atrial enlargement, no other obvious abnormalities noted. EKG 2: EKG interpretation date: 07/30/22 EKG interpretation time: 19:35 Prior EKG tracings: available for review Interpretation: EKG shows a sinus rhythm with a regular rate [address] elevation or ectopy is noted. No difference from prior exam 2 hours ago. Discharge Plan Discharge Patient Disposition: Home Clinical Impression: Hypertensive urgency Chest pain Qualifiers: Chest pain type: unspecified Qualified Code(s): R07.9 - Chest pain, unspecified Shingles Qualifiers: Herpes zoster complications: without complications Qualified Code(s): B02.9 - Zoster without complications Condition: Stable Prescriptions: New valacyclovir 1 gram tablet 1,000 mg PO TID 7 Days Qty: 21 0RF hydrocodone-acetaminophen 5-325 mg tablet 1 tab PO Q6H PRN (Reason: pain (scale score 7-10)) Qty: 10 0RF No Action hydroxyzine HCl 50 mg tablet 50 mg PO ONCE metoprolol succinate 50 mg capsule,sprinkle,ER 24hr 50 mg PO DAILY tizanidine 4 mg capsule 4 mg PO BID PRN (Reason: Muscle Spasm) ibuprofen 800 mg tablet 800 mg PO Q8H levothyroxine 75 mcg capsule 75 mcg PO DAILY diphenhydramine HCl [Benadryl] 25 mg capsule 25 mg PO TID PRN (Reason: Sleep) Nurtec ODT 75 mg tablet,disintegrating 75 mg PO DIRECTED PRN (Reason: Headache) Emgality Pen 120 mg/mL pen injector 240 mg SUBCUT ONCE Qty: 2 0RF Rx Instructions: Take 240 mg injection for first month. Emgality Pen 120 mg/mL pen injector 120 mg SUBCUT .Monthly Qty: 1 0RF Rx Instructions: Take 1 injection monthly pimecrolimus [Elidel] 1 % cream 1 applic topical BID Qty: 30 0RF Rx Instructions: Apply to face twice daily for maintenance of eczema clobetasol 0.05 % ointment 1 applic topical BID 14 Days Qty: 60 1RF Rx Instructions: Apply thin layer to arms, legs and abdomen as needed for flares hydrocortisone 2.5 % cream 1 applic topical BID PRN (Reason: skin irritation) Qty: 20 0RF Rx Instructions: Apply thin layer to face as needed for flares ketoconazole 2 % cream 1 applic topical BID Qty: 30 3RF Rx Instructions: Apply to affected areas in skin folds x3 weeks then prn for flares mupirocin 2 % ointment 1 applic topical BID Qty: 15 0RF Rx Instructions: Apply thin layer to chest until healed triamcinolone acetonide 0.1 % ointment 1 applic topical BID Qty: 80 0RF Rx Instructions: Apply to affected area no more than 2 weeks/month. Not for use on face or folds quetiapine 25 mg tablet 25 mg PO BID alprazolam 0.5 mg tablet 0.5 mg PO DAILY amitriptyline 25 mg tablet 25 mg PO DAILY venlafaxine 150 mg tablet extended release 24hr 150 mg PO DAILY scopolamine base 1 mg over 3 days patch 3 day 1 patch transdermal Q3D PRN (Reason: nausea and vomiting) Qty: 4 0RF Rx Instructions: place patch Thursday morning ibuprofen 800 mg Tablet 800 mg PO Q8H Qty: 30 0RF docusate sodium 100 mg Capsule 100 mg PO BID Qty: 60 0RF tramadol 50 mg tablet 50 mg PO Q6H Qty: 30 0RF Discharge Orders: Discharge ED (Routine); Ordered 07/30/22 Ordered By: Houston De La Garza Referrals: Ashlee Howard FNP [Primary Care Provider] - Discharge Diet: Usual diet Patient Instructions: Shingles (ED), Hypertension and Diabetes (ED), Opioid Safety Activity Restrictions/Additional Instructions: Follow-up with primary care regarding blood pressure. Take antiviral, valacyclovir 1000 mg, 3 times a day for 7 days. Use hydrocodone for severe p ain. Use [id number] lidocaine ointment or jelly to lesions from shingles to help for further pain relief. Drink plenty of water with medications. Return to ER for new concerns or worsening symptoms such as severe chest pain or shortness of breath. Coding Level of Care Code ED English As A Second Language Instructor for Katarina Estes
--- NOTE | 2022-07-30 17:43 | CTR_ITS ---
PROCEDURE INFORMATION: Exam: CT Abdomen And Pelvis With Contrast Exam date and time: 07/30/2022 5:49 PM Age: 51 years old Clinical indication: Abdominal pain; Prior surgery; Surgery date: 1-6 months; Surgery type: Hysterectomy 06/10/22; Additional info: R/O abd infection, recent hysterectomy TECHNIQUE: Imaging protocol: Computed tomography of the abdomen and pelvis with contrast. Radiation optimization: All CT scans at this facility use at least one of these dose optimization techniques: automated exposure control; mA and/or kV adjustment per patient size (includes targeted exams where dose is matched to clinical indication); or iterative reconstruction. Contrast material: OMNI 350; Contrast volume: 100 ml; Contrast route: INTRAVENOUS (IV); REPORTING DATA: Count of CT and Cardiac NM exams in prior 12 months: This patient has received 0 known CTs and 0 known cardiac nuclear medicine studies in the 12 months prior to the current study. COMPARISON: none available. RADIATION DOSE METRICS: Total DLP (mGy-cm): 1119.8 FINDINGS: Liver: Normal. No mass. Gallbladder and bile ducts: Normal. No calcified stones. No ductal dilation. Pancreas: Normal. No ductal dilation. Spleen: Normal. No splenomegaly. Adrenal glands: Normal. No mass. Kidneys and ureters: Small 10 mm hypodense lesion in the left kidney is too small to characterize but is likely benign. The kidneys appear normal. No hydronephrosis. Stomach and bowel: Surgical changes of gastric bypass are noted. Surgical changes are also seen in the anorectal region. No intestinal obstruction. A large amount of stool is present in the colon. Appendix: The appendix is normal. Intraperitoneal space: Unremarkable. No free air. No significant fluid collection. Vasculature: Unremarkable. No abdominal aortic aneurysm. Lymph nodes: Unremarkable. No enlarged lymph nodes. Urinary bladder: Unremarkable as visualized. Reproductive: The uterus has been removed. Bones/joints: Unremarkable. No acute fracture. Soft tissues: Unremarkable. CT/CT abdomen pelvis w con* [id number] IMPRESSION: No acute abnormality is seen in the abdomen or pelvis. Possible constipation.
[2022-07-30 17:57] LABS: Basophils # 0.1 10^3/uL (0.0-0.1); Basophils % 0.5 %; Eosinophils # 0.4 10^3/uL (0.0-0.8); Eosinophils % 3.4 %; Hematocrit 33.9 % (37.0-47.0); Hemoglobin 9.8 g/dL (11.5-15.3); Lymphocytes # 2.5 10^3/uL (0.8-4.8); Mean Corpuscular HGB Conc 28.9 g/dL (30.0-36.0); Mean Corpuscular Hemoglobin 19.6 pg (28.0-34.0); Mean Corpuscular Volume 67.8 fl (81-99); Mean Platelet Volume 9.6 fL (7.4-10.4); Monocytes # 0.9 10^3/uL (0.2-0.9); Monocytes % 7.9 %; Neutrophils # 6.99 10^3/uL (1.8-7.7); Neutrophils % 64.9 %; Nucleated Red Blood Cells % 0 %; Platelet Count 476 10^3/cmm (130-400); Red Cell Distribution Width 15.3 % (12.1-15.1); White Blood Count 10.8 10^3/uL (4.0-10.0)
[2022-07-30] MEDS: iohexol 350 mg/mL 500 mL Btl (per mL) IV (17:57)
[2022-07-30 18:25] LABS: Troponin(5th) Baseline 6 ng/L (0-10)
[2022-07-30 18:29] LABS: Alanine Aminotransferase 16 U/L (0-33); Albumin Level 4.4 g/dL (3.5-5.2); Alkaline Phosphatase 127 U/L (35-105); Anion Gap 15.5 (5-19); Aspartate Amino Transferase 16 U/L (0-32); Blood Urea Nitrogen 8 mg/dL (6-20); Calcium 8.6 mg/dL (8.5-10.5); Carbon Dioxide 25 mmol/L (22-29); Chloride 101 mmol/L (98-107); Globulin 3.2 g/dL (1.3-4.6); Glomerular Filtration Rate 105.8 mL/min (90-130); Glucose 96 mg/dL (65-115); NT Pro B Type Natriuretic Pept 36 pg/mL (0-125); Osmolality Calculated 284 mOsm/kg (285-295); Potassium 3.5 mmol/L (3.5-5.1); Sodium 138 mmol/L (136-145); Total Bilirubin 0.2 mg/dL (0.15-1.2); Total Protein 7.6 g/dL (6.6-8.7)
[2022-07-30] MEDS: labetalol 5 mg/mL SDV 20mL 10 MG IVP (19:04)
[2022-07-30 19:27] VITALS: BP 167/86; PULSE 90; O2SAT 97
[2022-07-30 19:30] LABS: Lipase 21 U/L (13-60)
--- NOTE | 2022-07-30 19:31 | ECG_ITS ---
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 Measurements Intervals [place] Rate: 86 P: 39 VA: 152 QRS: -3 QRSD: 86 T: 12 QT: 336 QTc: 403 Interpretive Statements SINUS RHYTHM POSSIBLE LEFT ATRIAL ENLARGEMENT [-0.1mV P-WAVE IN V1/V2] LOW QRS VOLTAGE IN PRECORDIAL LEADS [QRS DEFLECTION < 1.0 mV IN CHEST LEADS] PATTERN CONSISTENT WITH PULMONARY DISEASE NONSPECIFIC T-WAVE ABNORMALITY No previous ECG available for comparison Electronically Signed On 07-30-2022 22:43:09 CDT by Chucho Ferreira M.D. [id number]
[2022-07-30 20:38] LABS: Troponin 5 2HR 6 ng/L (0-10); Troponin 5 2HR Delta 0 ABS# (0-10)
[2022-07-30 20:49] LABS: Add Urine Microscopic? NO; Charge for UA Resulting for Rev
[2022-07-30] MEDS: valACYclovir 1,000 mg Tablet 1000 MG PO (21:06)
[2022-07-30 21:35] LABS: Bilirubin Urine Neg (Negative); Blood Urine Neg (Negative); Glucose Urine UA Norm (Normal); Ketones Urine Negative (Negative); Leukocyte Esterase Urine Negative (Negative); Nitrate Urine Negative (Negative); Protein Urine Neg (Negative); Urine Appearance Clear (CLEAR); Urine Color Straw (Yellow); Urobilinogen Urine Norm (Negative); pH Urine 6.5 (5-7)
== END 2022-07-30 21:07 | disposition home or self-care (01) ==
PROVIDERS: Emergency Provider Nurse Practitioner Family; PCP Nurse Practitioner Family
DX: I16.0 Hypertensive urgency (principal); I10 Essential (primary) hypertension; D64.9 Anemia, unspecified; B02.9 Zoster without complications
CPT/HCPCS: 70450; 71045; 74177; 80053; 81003; 83690; 83880; 84484; 85025; 93005; 96374; 99285; J3490; Q9967

== ENCOUNTER → 2023-01-05 09:17 | Outpatient (BNVA) | payer BC, MEDICAID, SELFPAY | PROVIDERS: PCP Nurse Practitioner Family; Visit Provider Nurse Practitioner Family | DX: M25.50 Pain in unspecified joint (principal) | CPT/HCPCS: 86160; 86162; 86235; 86255; 86376 ==

== ENCOUNTER 2023-02-20 07:25 | Day surgery (SDC) | payer BC, MEDICAID, SELFPAY ==
[2023-02-20 07:40] VITALS: BP 150/105; PULSE 88; RESP 16; TEMP 36.5; O2SAT 95
[2023-02-20] MEDS: sodium chloride 0.9% 1,000 ML 30 ML IV (08:03)
[2023-02-20 08:08] LABS: Glucose Point of Care 134 mg/dL (70-110)
--- NOTE | 2023-02-20 08:17 | ANES.PREANE2 ---
Pre-Anesthetic Assessment Height/Weight: Height 1.6 m Weight 108.862 kg Temp Pulse Resp BP Pulse Ox O2 Del Method 97.7 F 88 16 150/105 95 Room Air 02/20/23 07:40 02/20/23 07:40 02/20/23 07:40 02/20/23 07:40 02/20/23 07:40 02/20/23 07:40 Preop Diagnosis: screening Operation Date: 02/20/23 08:30 Proposed Procedures p 65043 colon G0121 screen colon A risk Z12.11(Not Applicable) - Alok Rogers DO Familial anesthetic complications: post op nausea Was Beta Richard taken within 24 hours: N/A Was Clonidine taken within 24 hours: N/A Last intake: Intake Last Liquid Date 02/19/23 Last Liquid Time 22:30 Last Solid Date 02/18/23 Last Solid Time 21:00 Social No alcohol and No tobacco Exam alert, oriented x 3, clear to auscultation bilaterally and regular rate & rhythm Airway Submandibular: within normal limits Cervical ROM: within normal limits Mallampati: Class II Dentition: full Pulmonary Asthma CV/HEM Hypertension None reported Hepatic None reported GI None reported Metabolic Diabetes Mellitus, Morbid Obesity and Thyroid Disease [facility] [place]/el Fibromyalgia and Osteoarthritis/DJD Neuropsych Anxiety, Depression, Headache and Transient Ischemic Attack Anesthetic Plan ASA status: 3 Anesthesia: MAC Risk of > 500 ml blood loss (7ml/kg in children): No Medications/Allergies Home Medications Medication Instructions Recorded Confirmed Last Taken Type hydroxyzine HCl 50 mg tablet 50 mg PO DAILY 04/20/19 02/19/23 02/19/23 History diphenhydramine HCl 25 mg capsule 25 mg PO TID PRN Sleep 04/01/22 02/19/23 02/19/23 History (Benadryl) levothyroxine 75 mcg capsule 75 mcg PO DAILY 04/01/22 02/19/23 02/20/23 History metoprolol succinate 50 mg capsule 50 mg PO BID 04/01/22 02/19/23 02/20/23 History sprinkle, ext. release 24 hr rimegepant 75 mg disintegrating 75 mg PO DIRECTED PRN Headache 04/01/22 02/19/23 02/19/23 History tablet (Nurtec ODT) tizanidine 4 mg capsule 4 mg PO BID PRN Muscle Spasm 04/01/22 02/19/23 02/19/23 History hydrocortisone 2.5 % topical cream 1 applic topical BID PRN skin 04/08/22 02/19/23 02/19/23 Rx irritation #20 grams ketoconazole 2 % topical cream 1 applic topical BID #30 grams 04/08/22 02/19/23 02/19/23 Rx mupirocin 2 % topical ointment 1 applic topical BID #15 grams 04/08/22 02/19/23 02/19/23 Rx pimecrolimus 1 % topical cream 1 applic topical BID #30 grams 04/08/22 02/19/23 02/19/23 Rx (Elidel) triamcinolone acetonide 0.1 % 1 applic topical BID #80 grams 04/08/22 02/19/23 02/19/23 Rx topical ointment alprazolam 0.5 mg tablet 0.5 mg PO DAILY PRN Anxiety 04/17/22 02/19/23 02/20/23 History amitriptyline 25 mg tablet 25 mg PO DAILY 06/05/22 02/19/23 02/19/23 History galcanezumab-gnlm 120 mg/mL 120 mg SUBCUT .Monthly #1 mL 07/14/22 02/19/23 02/19/23 Rx subcutaneous pen injector (Emgality Pen) syringe with needle 3 mL 25 gauge #18 ea 08/27/22 02/20/23 02/19/23 Rx x 1 (CareTouch Luer Lock Syringe with needle) amlodipine 5 mg tablet 5 mg PO DAILY 01/20/23 02/19/23 02/20/23 History ferrous sulfate 325 mg (65 mg 325 mg PO DAILY 01/20/23 02/19/23 02/19/23 History iron) tablet (FeroSul) metformin 500 mg tablet,extended 500 mg PO BID 01/20/23 02/19/23 02/19/23 History release 24 hr onabotulinumtoxinA 100 unit 155 unit IM ONCE #2 ea 02/03/23 02/19/23 02/19/23 Rx solution for injection (Botox) quetiapine 200 mg tablet (Seroquel) 200 mg PO DAILY 02/03/23 02/19/23 02/19/23 History venlafaxine 150 mg 225 mg PO DAILY 02/03/23 02/19/23 02/20/23 History capsule,extended release 24 hr clobetasol 0.05 % topical ointment 1 applic topical BID PRN flares 02/19/23 02/19/23 02/19/23 History (Temovate) cyanocobalamin (vitamin B-12) 1,000 mcg IM .MONTHLY 02/19/23 02/19/23 02/19/23 History 1,000 mcg/mL injection kit Allergies Allergy/AdvReac Type Severity Reaction Status Date / Time shellfish derived Allergy Intermediate hives Verified 02/19/23 09:02 Cephalosporins Allergy Unknown Verified 02/19/23 09:02 egg Allergy Unknown Verified 02/19/23 09:02 erythromycin base Allergy GI upset Verified 02/19/23 09:02 latex Allergy ALGY-Hives Verified 02/19/23 09:02 Penicillins AdvReac hives Verified 02/19/23 09:02 Current Medications Generic Name Dose Route Start Last Admin Trade Name Freq PRN Reason Stop Dose Admin Sodium Chloride 1,000 mls @ 30 mls/hr 02/20/23 07:45 02/20/23 08:03 Sodium Chloride 0.9% IV 02/21/23 07:44 30 mls/hr .Q24H JACLYN Administration PFSH Anesthesia Medical History Cervicalgia of yeomgxph-vtrmfie-gszzs region Chronic migraine without aura, intractable, with status migrainosus Diabetes Encounter for screening laboratory testing for COVID-19 virus Hx-TIA (transient ischemic attack) Hypertension Irregular intermenstrual bleeding Uterine fibroid Viral URI with cough Surgical History H/O hemorrhoidectomy History of gastric bypass No pertinent past surgical history Status post hysteroscopic ablation of endometrium Family History Grandmother Heart disease Hypertension Grandfather Heart disease Hypertension Mother Hypertension Other Diabetes Stroke Denies family history of Colon cancer Ovarian cancer Hypercholesteremia Breast cancer Uterine cancer Thyroid disease Social History Alcohol intake: never Substance/Drug Use: never Data Anesthesia Cardiac Studies: No Data to Display
--- NOTE | 2023-02-20 08:34 | PM.HP ---
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 Chief Complaint: Z12.11 History of Present Illness Angie Yusuf is a 52 year old female Review of Systems General: Reports: 10 or more systems reviewed and unremarkable except in HPI and below Medications/Allergies Home Medications Medication Instructions Recorded Confirmed Last Taken Type hydroxyzine HCl 50 mg tablet 50 mg PO DAILY 04/20/19 02/19/23 02/19/23 History diphenhydramine HCl 25 mg capsule 25 mg PO TID PRN Sleep 04/01/22 02/19/23 02/19/23 History (Benadryl) levothyroxine 75 mcg capsule 75 mcg PO DAILY 04/01/22 02/19/23 02/20/23 History metoprolol succinate 50 mg capsule 50 mg PO BID 04/01/22 02/19/23 02/20/23 History sprinkle, ext. release 24 hr rimegepant 75 mg disintegrating 75 mg PO DIRECTED PRN Headache 04/01/22 02/19/23 02/19/23 History tablet (Nurtec ODT) tizanidine 4 mg capsule 4 mg PO BID PRN Muscle Spasm 04/01/22 02/19/23 02/19/23 History hydrocortisone 2.5 % topical cream 1 applic topical BID PRN skin 04/08/22 02/19/23 02/19/23 Rx irritation #20 grams ketoconazole 2 % topical cream 1 applic topical BID #30 grams 04/08/22 02/19/23 02/19/23 Rx mupirocin 2 % topical ointment 1 applic topical BID #15 grams 04/08/22 02/19/23 02/19/23 Rx pimecrolimus 1 % topical cream 1 applic topical BID #30 grams 04/08/22 02/19/23 02/19/23 Rx (Elidel) triamcinolone acetonide 0.1 % 1 applic topical BID #80 grams 04/08/22 02/19/23 02/19/23 Rx topical ointment alprazolam 0.5 mg tablet 0.5 mg PO DAILY PRN Anxiety 04/17/22 02/19/23 02/20/23 History amitriptyline 25 mg tablet 25 mg PO DAILY 06/05/22 02/19/23 02/19/23 History galcanezumab-gnlm 120 mg/mL 120 mg SUBCUT .Monthly #1 mL 07/14/22 02/19/23 02/19/23 Rx subcutaneous pen injector (Emgality Pen) syringe with needle 3 mL 25 gauge #18 ea 08/27/22 02/20/23 02/19/23 Rx x 1 (CareTouch Luer Lock Syringe with needle) amlodipine 5 mg tablet 5 mg PO DAILY 01/20/23 02/19/23 02/20/23 History ferrous sulfate 325 mg (65 mg 325 mg PO DAILY 01/20/23 02/19/23 02/19/23 History iron) tablet (FeroSul) metformin 500 mg tablet,extended 500 mg PO BID 01/20/23 02/19/23 02/19/23 History release 24 hr onabotulinumtoxinA 100 unit 155 unit IM ONCE #2 ea 02/03/23 02/19/23 02/19/23 Rx solution for injection (Botox) quetiapine 200 mg tablet (Seroquel) 200 mg PO DAILY 02/03/23 02/19/23 02/19/23 History venlafaxine 150 mg 225 mg PO DAILY 02/03/23 02/19/23 02/20/23 History capsule,extended release 24 hr clobetasol 0.05 % topical ointment 1 applic topical BID PRN flares 02/19/23 02/19/23 02/19/23 History (Temovate) cyanocobalamin (vitamin B-12) 1,000 mcg IM .MONTHLY 02/19/23 02/19/23 02/19/23 History 1,000 mcg/mL injection kit Allergies Allergy/AdvReac Type Severity Reaction Status Date / Time shellfish derived Allergy Intermediate hives Verified 02/19/23 09:02 Cephalosporins Allergy Unknown Verified 02/19/23 09:02 egg Allergy Unknown Verified 02/19/23 09:02 erythromycin base Allergy GI upset Verified 02/19/23 09:02 latex Allergy ALGY-Hives Verified 02/19/23 09:02 Penicillins AdvReac hives Verified 02/19/23 09:02 PFSH Acute PFSH: Medical History Cervicalgia of jvzttndn-lqiqxho-tbgug region Chronic migraine without aura, intractable, with status migrainosus Diabetes Encounter for screening laboratory testing for COVID-19 virus Hx-TIA (transient ischemic attack) Hypertension Irregular intermenstrual bleeding Uterine fibroid Viral URI with cough Surgical History H/O hemorrhoidectomy History of gastric bypass No pertinent past surgical history Status post hysteroscopic ablation of endometrium Family History Grandmother Heart disease Hypertension Grandfather Heart disease Hypertension Mother Hypertension Other Diabetes Stroke Denies family history of Colon cancer Ovarian cancer Hypercholesteremia Breast cancer Uterine cancer Thyroid disease Social History Alcohol intake: never Substance/Drug Use: never Vitals/I&O/Wt Last Vital Signs Temp 97.7 F 02/20/23 07:40 Pulse 88 02/20/23 07:40 Resp 16 02/20/23 07:40 BP 150/105 02/20/23 07:40 Pulse Ox 95 02/20/23 07:40 O2 Del Method Room Air 02/20/23 07:40 Weight last 48 hrs Weight 240 lb A&P Assessment and plan (1) Colon cancer screening: Plan Colonoscopy Attestations Medical Necessity Statement*: Home Coding Level of Care Code Acute Code for Chg Fwd Diagnoses Colon cancer screening Z12.11
[2023-02-20 08:59] VITALS: BP 122/94; PULSE 75; RESP 18; TEMP 36.1; O2SAT 98
[2023-02-20 09:13] VITALS: BP 141/91; PULSE 79; RESP 18; O2SAT 96
--- NOTE | 2023-02-20 14:47 | ANE.PACU2 ---
Inpatient post-anesthesia follow up: Airway intact: Yes Vital signs: Temperature 97.0 F Pulse Rate 79 Respiratory Rate 18 Blood Pressure 141/91 Pulse Oximetry 96 Oxygen Delivery Me thod Room Air Oxygen Flow Rate 3 Fraction of Inspir ed Oxygen Hydration adequate: Yes Nausea and vomiting: No Pain level: 2 Mental status: Baseline
== END 2023-02-20 09:35 | disposition home or self-care (01) ==
PROVIDERS: PCP Nurse Practitioner Family; Visit Provider Surgery
PROC: 0DJD8ZZ Inspection of Lower Intestinal Tract, Via Natural or Artificial Opening Endoscopic (ICD-10-PCS; CPT 45378; principal; 2023-02-20 08:30)
DX: Z12.11 Encounter for screening for malignant neoplasm of colon (principal); E11.9 Type 2 diabetes mellitus without complications; Z86.73 Personal history of transient ischemic attack (TIA), and cerebral infarction without residual deficits; I10 Essential (primary) hypertension; Z98.84 Bariatric surgery status; E66.01 Morbid (severe) obesity due to excess calories; Z68.41 Body mass index [BMI] 40.0-44.9, adult; Z79.84 Long term (current) use of oral hypoglycemic drugs
CPT/HCPCS: 36416; 45378; 82962; J1100; J2704; J7030

== ENCOUNTER → 2023-06-06 12:18 | Outpatient (BNVA) | payer BC, MEDICAID, SELFPAY | PROVIDERS: PCP Nurse Practitioner Family; Visit Provider Emergency Medicine | DX: S49.91XA Unspecified injury of right shoulder and upper arm, initial encounter (principal); X58.XXXA Exposure to other specified factors, initial encounter | CPT/HCPCS: 73030 ==

== ENCOUNTER 2023-07-24 15:12 | Outpatient (CLI) | payer BC, MEDICAID, SELFPAY ==
--- NOTE | 2023-07-24 15:15 | MR_ITS ---
WS: [id number] MRI RIGHT SHOULDER NONCONTRAST TECHNIQUE: Sagittal T2, coronal T1, T2 and proton density imaging. Axial gradient PDE imaging. CLINICAL INFORMATION: RIGHT SHOULDER JOINT PAIN COMPARISON: None. FINDINGS: Moderate arthritis AC joint with subacromial spurring. Slight impingement on the distal supraspinatus . Small amount of subacromial subdeltoid fluid. Tendinopathy distal supraspinatus. Small partial burs al surface tear involving the distal supraspinatus. No tendon retraction. Chronic thinning of the dis chelsey supraspinatus. Normal infraspinatus. Normal teres minor. Normal bone marrow signal in the glenoid. Labrum appears gr ossly normal. Biceps tendon appears intact within the bicipital groove. Subscapularis appears intact. Normal bone marrow signal in the humerus. Intra-articular biceps tendon appears intact. MR/MR shoulder RT wo con* [id number] IMPRESSION: 1. Moderate degenerative arthritis AC joint with moderate downsloping of the a cromion. Impingement of the distal supraspinatus with subacromial spurring. 2. Small bursal surface tear involving the distal supraspinatus. Mild chronic thinning and tendinopathy. No tendon retraction. 3. Rotator cuff is otherwise intact. 4. Normal biceps tendon in the bicipital groove. 5. No other acute findings.
== END 2023-07-24 15:13 | disposition home or self-care (01) ==
LOC: RAD 15:12
PROVIDERS: PCP Nurse Practitioner Family; Visit Provider Nurse Practitioner Family
DX: M25.511 Pain in right shoulder (principal); M19.011 Primary osteoarthritis, right shoulder; M75.41 Impingement syndrome of right shoulder; M25.712 Osteophyte, left shoulder; M75.111 Incomplete rotator cuff tear or rupture of right shoulder, not specified as traumatic
CPT/HCPCS: 73221

== ENCOUNTER → 2023-08-24 11:05 | Outpatient (BNVA) | payer BC, MEDICAID, SELFPAY | PROVIDERS: PCP Nurse Practitioner Family; Visit Provider Internal Medicine Rheumatology | DX: Z79.899 Other long term (current) drug therapy (principal); M19.90 Unspecified osteoarthritis, unspecified site | CPT/HCPCS: 36415; 80076; 82306; 82565; 85025; 85651; 86140; 86200; 86480; 86704; 86803; 86812; 87340 ==

== ENCOUNTER 2023-09-10 09:26 | Outpatient (CLI) | payer BC, MEDICAID, SELFPAY ==
--- NOTE | 2023-09-10 09:37 | XR_ITS ---
WS: [email or web address] Exam: XR hand LT min 3V* [id number] Date/Time of Exam: 09/10/2023 9:51 AM Reason For Exam: Z79.899 - Other intermediate (current) drug therapy Findings: No fractures, soft tissue swelling, or unusual calcifications are noted. The hand shows normal bony alignment. There is no irregularity of the bony architecture. XR/XR hand LT min 3V* [id number] IMPRESSION: Normal LEFT hand.
--- NOTE | 2023-09-10 09:37 | XR_ITS ---
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 Mild degenerative anterolisthesis of L4 on L5 secondary to facet degenera tion. Degenerative narrowing of the L4-5 and L5-S1 discs. Facet degenerative changes from L3-S1. XR/XR lumbar spine 2-3V* [id number] IMPRESSION: 1. No fracture or malalignment. 2. Degenerative changes of the lower lumbar spine as detailed above.
--- NOTE | 2023-09-10 09:37 | XR_ITS ---
WS: [email or web address] Exam: XR hand RT min 3V* [id number] Date/Time of Exam: 09/10/2023 9:51 AM Reason For Exam: Z79.899 - Other penitentiary (current) drug therapy Findings: No fractures, soft tissue swelling, or unusual calcifications are noted. The hand shows normal bony alignment. There is no irregularity of the bony architecture. XR/XR hand RT min 3V* [id number] IMPRESSION: Normal RIGHT hand.
--- NOTE | 2023-09-10 09:37 | XR_ITS ---
WS: [email or web address] Exam: XR sacroiliac jts m 3V [id number] Date/Time of Exam: 09/10/2023 9:51 AM Reason For Exam: Z79.899 - Other residential (current) drug therapy No fracture or bone destruction. The SI joints are open. Very minimal DJD. XR/XR sacroiliac jts m 3V 55302 IMPRESSION: 1. Mild bilateral SI joint DJD. No other significant finding.
--- NOTE | 2023-09-10 09:37 | XR_ITS ---
WS: [email or web address] Exam: XR foot LT min 3V* [id number] Date/Time of Exam: 09/10/2023 9:51 AM Reason For Exam: Z79.899 - Other [facility] (current) drug therapy No fracture or dislocation. The joints of the foot are preserved. No soft tissue foreign bodies. Inci dentally noted is moderate degenerative change of the visualized ankle mortise. IMPRESSION1. Negative LEFT foot. 2. Moderate degenerative change of the ankle mortise.
--- NOTE | 2023-09-10 09:37 | XR_ITS ---
WS: [email or web address] Exam: XR foot RT min 3V* [id number] Date/Time of Exam: 09/10/2023 9:51 AM Reason For Exam: Z79.899 - Other [facility] (current) drug therapy Findings: The foot was examined in multiple views and reveals no fractures or displacements of bone. No bony a nomalies are noted. The bony elements are in adequate alignment. The joint spaces are smooth and eq uidistant. XR/XR foot RT min 3V* [id number] IMPRESSION: Negative RIGHT foot.
== END 2023-09-10 09:27 | disposition home or self-care (01) ==
LOC: RAD 09:27
PROVIDERS: PCP Nurse Practitioner Family; Visit Provider Internal Medicine Rheumatology
DX: M48.08 Spinal stenosis, sacral and sacrococcygeal region (principal); M48.061 Spinal stenosis, lumbar region without neurogenic claudication; M47.896 Other spondylosis, lumbar region; Z79.899 Other long term (current) drug therapy; M19.90 Unspecified osteoarthritis, unspecified site
CPT/HCPCS: 72100; 72202; 73130; 73630

== ENCOUNTER → 2023-11-23 13:44 | Outpatient (BNVA) | payer BC, MEDICAID, SELFPAY | PROVIDERS: PCP Nurse Practitioner Family; Visit Provider Internal Medicine Rheumatology | DX: Z79.899 Other long term (current) drug therapy (principal); L40.50 Arthropathic psoriasis, unspecified | CPT/HCPCS: 36415; 80076; 82565; 85025; 85651; 86140 ==

== ENCOUNTER → 2023-12-21 15:53 | Outpatient (BNVA) | payer BC, MEDICAID, SELFPAY | PROVIDERS: PCP Nurse Practitioner Family; Referring Provider Nurse Practitioner Family; Visit Provider Internal Medicine Cardiovascular Disease | DX: R07.9 Chest pain, unspecified (principal) | CPT/HCPCS: 93005 ==

== ENCOUNTER 2024-01-11 06:50 | Outpatient (CLI) | payer BC, MEDICAID, SELFPAY ==
[2024-01-11 07:04] VITALS: BMI 44.2
--- NOTE | 2024-01-11 07:04 | NMCV_ITS ---
NM lila perf SPECT r/s* [id number] Angie Yusuf Age: 53 Gender: F : 1970 Exam Date: 01/11/2024 07:04 Ordering Phys: Brandi Shepard MD ([email or web address]) Technologist: OSWALD Mcdaniel Exam [facility]: [facility] Indications: cp STRESS TEST [facility] IMAGE PROTOCOL Rest/Stress 1 Exercise Day Radiopharmaceutical Dose (mCi) Administration Site Administered by Rest: Tc-99m 9 IV OSWALD Mcdaniel Sestamibi Stress:Tc-99m 31 IV OSWALD Stubbs Sestamibi Rest: 11-Jan-2024 60 Discovery 630 Stress: 11-Jan-2024 30 Discovery 630 Radiopharmaceutical was injected at 87 % maximum heart rate. Supine position only as patient was unable to lay prone. SPECT RESULTS Technical Quality: Good Raw Data Analysis: Normal Image Corrections: No attenuation or motion correction applied Summed Stress Score: 0 Summed Rest Score: 0 Summed Difference Score: 0 PERFUSION FINDINGS Fairly uniform myocardial tracer uptake with no significant Perfusion abnormalities. FUNCTIONAL RESULTS (calculated via Gated SPECT) Stress Image LV EF (%): 81 Stress EDV (mL):32 TID: 0.79 Stress ESV (mL):6 FUNCTIONAL FINDINGS: Segmental wall motion analysis revealing no gross wall motion abnormalities IMPRESSIONS 1. Uniform myocardial tracer uptake with no significant perfusion abnormalities. 2. Normal LV ejection fraction of 81%. 3. LV wall motion analysis revealing no gross wall motion abnormalities. 4. Normal LV volume Low probability for coronary ischemia, based on the above findings Dr Brandi Shepard MD FACC (Electronically Signed) Final Date: 14 January 2024 00:26 S
--- NOTE | 2024-01-11 07:04 | ECG_ITS ---
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 Interpretive Statements PROCEDURE: The baseline electrocardiogram showed sinus tachycardia with nonspecific ST-T changes. Poor R wave progression.. At the baseline, the patient's blood pressure was mm Hg with a heart rate of. The patient exercised for 3 minutes and 46 seconds on a standard Alexis protocol. Patient attained a maximum heart rate of 155 beats per minute(92% of the maximum predicted heart rate) with a blood pressure at the peak exercise of 153/77 mm Hg. The EKG at the peak exercise revealed no significant changes. Patient did not have any chest pain or any significant arrhythmis with the exercise Sestamibi was injected 1 minute prior to the peak exercise During the recovery phase, there were no new changes. Blood pressure at the end of the recovery phase was 125/91 mm Hg with a heart rate of 115 per minute. CONCLUSION: 1. No significant EKG changes with the [treadmill exercise 2. No exercise-induced chest pain or cardiac arrhythmia 3. Impaired exercise tolerance, attained a maximum of 7.0 METs 4. Sestamibi/Sestamibi perfusion results pending; see separate report. Lung unchanged pre/post procedure; Intraprocedure shortess of breath; Symptoms resoled by discharge Electronically Signed On 01-14-2024 18:34:46 CDT by Brandi Shepard M.D. [email or web address]
[2024-01-11 08:54] VITALS: BP 125/91; PULSE 115
== END 2024-01-11 06:51 | disposition home or self-care (01) ==
PROVIDERS: PCP Nurse Practitioner Family; Visit Provider Internal Medicine Cardiovascular Disease
DX: R07.9 Chest pain, unspecified (principal); R06.02 Shortness of breath
CPT/HCPCS: 36415; 78452; 93017; A9500

== ENCOUNTER 2024-01-25 14:54 | Outpatient (CLI) | payer BC, MEDICAID, SELFPAY ==
--- NOTE | 2024-01-25 15:00 | USCV_ITS ---
Angie Yusuf Age: 53 Gender: F : 1970 Exam Date: 01/25/2024 15:10 Ordering Phys: Brandi Shepard MD ([email or web address]) Technologist: CT Exam Location: [facility] [place] Indication: cp BP: 121 / 80 HR: 74 Rhythm: Sinus Technical Quality: Technically difficult study MEASUREMENTS (Male / Female) Normal Values 2D ECHO LVOT Diameter 2.0 cm LV Ejection Fraction MOD 4C 67.2 % LV Ejection Fraction MOD 2C 73.6 % LV Ejection Fraction 2C AL 75.1 % LA Diameter 3.9 cm RA Systolic Volume 4C AL 24.0 ml RA Systolic Volume 4C MOD 23.4 ml LA Sys Volume AL 28.2 cm cubed LA Sys Volume Index AL 12.2 cm cubed/m squared Aorta at Sinotubular Diameter 1.7 cm M-MODE LA Ao Ratio MM 1.7 AV Cusp Separation MM 1.6 cm DOPPLER AV Peak Velocity 150.0 cm/s LVOT Peak Velocity 122.0 cm/s AV Area Cont Eq vti 3.0 cm squared AV Area Cont Eq pk 2.6 cm squared MV Peak Velocity 107.0 cm/s MV Area PHT 3.2 cm squared Mitral E to A Ratio 0.8 TV Peak Velocity 167.5 cm/s TR Peak Velocity 205.0 cm/s TR Peak Gradient 16.8 mmHg TV Peak E Velocity 69.0 cm/s Right Atrial Pressure 3.0 mmHg Pulmonary Artery Systolic Pressu 19.8 mmHg PV Peak Velocity 141.0 cm/s FINDINGS Left Ventricle Normal left ventricular size and systolic function, EF 70%. No regional wall motion abnormalities. Grade I/IV diastolic dysfunction (abnormal relaxation filling pattern), normal to mildly elevated filling pressures. Right Ventricle The right ventricle is normal in size and function. Right Atrium The right atrium is normal in size. Left Atrium The left atrium is normal in size. Mitral Valve No gross abnormalities noted Aortic Valve No gross abnormalities noted Tricuspid Valve No gross abnormalities noted Pulmonic Valve No gross abnormalities noted Pericardium No pericardial effusion. Aorta Normal aortic annulus size. IVC Inferior vena cava not visualized. CONCLUSIONS Normal left ventricular size and systolic function, EF 70%. No regional wall motion abnormalities. Grade I/IV diastolic dysfunction (abnormal relaxation filling pattern), normal to mildly elevated filling pressures. No gross valvular abnormalities. There is no pericardial effusion. There are no intracardiac masses. Compared to the study from 12/01/2018, there may not be a significant change. Dr Brandi Shepard MD FACC (Electronically Signed) Final Date: 29 January 2024 20:40 S
== END 2024-01-25 14:55 | disposition home or self-care (01) ==
LOC: RAD 14:55
PROVIDERS: PCP Nurse Practitioner Family; Visit Provider Internal Medicine Cardiovascular Disease
DX: I50.30 Unspecified diastolic (congestive) heart failure (principal); R06.09 Other forms of dyspnea
CPT/HCPCS: 93306

== ENCOUNTER 2024-03-01 15:36 | Outpatient (CLI) | payer BC, MEDICAID, SELFPAY ==
--- NOTE | 2024-03-01 15:40 | MM_ITS ---
WS: [email or web address] BILATERAL 3D TOMOSYNTHESIS DIGITAL SCREENING MAMMOGRAM WITH CAD CLINICAL INFORMATION: SCREENING HISTORY: Screening mammogram. No current complaints. COMPARISON: 2022 TECHNIQUE: Bilateral CC and MLO views. FINDINGS: Fatty-replaced breasts bilaterally. No suspicious focal mass, asymmetry, calcifications, or software applications architect ural distortion. No evidence of malignancy. MM/MM scr tomosynthesis [id number] IMPRESSION: DENSITY: The breasts are almost entirely fatty. BI-RADS: 1 - Negative. FOLLOW UP: 1 Year Follow-up Recommend return to annual screening mammography.
== END 2024-03-01 15:37 | disposition home or self-care (01) ==
LOC: MOBLMAM 15:37
PROVIDERS: PCP Family Medicine; Visit Provider Family Medicine
DX: Z12.31 Encounter for screening mammogram for malignant neoplasm of breast (principal); R92.313 Mammographic fatty tissue density, bilateral breasts
CPT/HCPCS: 77063; 77067

== ENCOUNTER → 2024-03-22 14:56 | Outpatient (BNVA) | payer BC, MEDICAID, SELFPAY | PROVIDERS: PCP Family Medicine; Visit Provider Internal Medicine Cardiovascular Disease | DX: R07.9 Chest pain, unspecified (principal) | CPT/HCPCS: 93005 ==

== ENCOUNTER → 2024-03-29 15:15 | Outpatient (BNVA) | payer BC, MEDICAID, SELFPAY | PROVIDERS: PCP Family Medicine; Visit Provider Internal Medicine Rheumatology | DX: L40.50 Arthropathic psoriasis, unspecified (principal); Z79.899 Other long term (current) drug therapy | CPT/HCPCS: 36415; 80076; 82565; 85025; 85651; 86140 ==

== ENCOUNTER 2024-06-02 13:01 | Outpatient (CLI) | payer BC, MEDICAID, SELFPAY ==
--- NOTE | 2024-06-02 13:08 | XR_ITS ---
WS: [email or web address] Lumbar spine with flexion, extension, and neutral lateral, 06/02/2024 Clinical Data: BACK PAIN Comparison: Lumbar spine, 09/10/2023 Findings: There is minimal anterior subluxation of L3 on L4 and L4 on L5. There is degenerative disc narrowing at L4-L5 and L5-S1. There is facet joint arthritis from L3-L4 to L5-S1. On flexion and extension there is no instability. XR/XR lumbar spine f/e only [id number] Impression: 1. Minimal anterior subluxation of L3 on L4 and L4 and L5, but there is no inst ability on flexion or extension. 2. Lower lumbar degenerative disc narrowing and facet joint arthritis.
== END 2024-06-02 13:02 | disposition home or self-care (01) ==
LOC: RAD 13:04
PROVIDERS: PCP Family Medicine; Visit Provider Family Medicine
DX: M51.369 Other intervertebral disc degeneration, lumbar region without mention of lumbar back pain or lower extremity pain (principal); M47.896 Other spondylosis, lumbar region; M51.379 Other intervertebral disc degeneration, lumbosacral region without mention of lumbar back pain or lower extremity pain; M47.897 Other spondylosis, lumbosacral region
CPT/HCPCS: 72120

== ENCOUNTER → 2024-06-30 12:49 | Outpatient (BNVA) | payer BC, MEDICAID, SELFPAY | PROVIDERS: PCP Family Medicine; Visit Provider Orthopaedic Surgery | DX: M54.50 Low back pain, unspecified (principal); M43.16 Spondylolisthesis, lumbar region; M54.9 Dorsalgia, unspecified | CPT/HCPCS: 72110; 73522 ==

== ENCOUNTER → 2024-07-05 15:21 | Outpatient (BNVA) | payer BC, MEDICAID, SELFPAY | PROVIDERS: PCP Family Medicine; Visit Provider Internal Medicine Rheumatology | DX: Z79.899 Other long term (current) drug therapy (principal) | CPT/HCPCS: 36415; 80076; 82565; 85025; 85651; 86140 ==

== ENCOUNTER 2024-10-12 13:20 | Outpatient (CLI) | payer BC, MEDICAID, SELFPAY ==
[2024-10-12 14:04] LABS: Hematocrit 39.4 % (36-47); Hemoglobin 13.40 g/dL (11.27-16.99); Mean Corpuscular HGB Conc 34.0 g/dL (30-55); Mean Corpuscular Hemoglobin 28.9 pg (27-33); Mean Corpuscular Volume 84.9 fl (85-98); Nucleated Red Blood Cells % 0 %; Platelet Count 293 10^3/cmm (157-399); Red Blood Count 4.64 10^6/uL (3.85-5.65); White Blood Count 6.57 10^3/uL (3.29-11.43)
[2024-10-12 14:37] LABS: Alanine Aminotransferase 29 U/L (0-33); Albumin Level 4.3 g/dL (3.5-5.2); Alkaline Phosphatase 104 U/L (35-105); Aspartate Amino Transferase 22 U/L (0-32); Globulin 3.0 g/dL (1.3-4.6); Total Protein 7.3 g/dL (6.6-8.7)
== END 2024-10-12 13:21 | disposition home or self-care (01) ==
LOC: LAB 13:22
PROVIDERS: PCP Family Medicine; Visit Provider Internal Medicine Rheumatology
DX: Z79.899 Other long term (current) drug therapy (principal)
CPT/HCPCS: 36415; 80076; 82565; 85025; 85651; 86140

== ENCOUNTER → 2024-11-27 17:19 | Outpatient (BNVA) | payer BC, MEDICAID, SELFPAY | PROVIDERS: PCP Family Medicine; Visit Provider Registered Nurse Neonatal Intensive Care | DX: J02.9 Acute pharyngitis, unspecified (principal) | CPT/HCPCS: 87880 ==

== ENCOUNTER 2025-01-03 13:06 | Outpatient (CLI) | payer BC, MEDICAID, SELFPAY ==
[2025-01-03 13:48] LABS: Hematocrit 38.9 % (36-47); Hemoglobin 13.50 g/dL (11.27-16.99); Mean Corpuscular HGB Conc 34.7 g/dL (30-55); Mean Corpuscular Hemoglobin 28.8 pg (27-33); Mean Corpuscular Volume 83.1 fl (85-98); Nucleated Red Blood Cells % 0 %; Platelet Count 279 10^3/cmm (157-399); Red Blood Count 4.68 10^6/uL (3.85-5.65); White Blood Count 5.24 10^3/uL (3.29-11.43)
[2025-01-03 14:37] LABS: Alanine Aminotransferase 22 U/L (0-33); Albumin Level 4.3 g/dL (3.5-5.2); Alkaline Phosphatase 94 U/L (35-105); Aspartate Amino Transferase 17 U/L (0-32); Globulin 2.8 g/dL (1.3-4.6); Total Protein 7.1 g/dL (6.6-8.7)
== END 2025-01-03 13:07 | disposition home or self-care (01) ==
LOC: LAB 13:07
PROVIDERS: PCP Family Medicine; Visit Provider Internal Medicine Rheumatology
DX: Z79.899 Other long term (current) drug therapy (principal)
CPT/HCPCS: 36415; 80076; 82306; 82565; 85025; 85651; 86140; 86480